=== PATIENT | female | born 1995 | race Caucasian/White ===

== ENCOUNTER → 2023-04-05 | Outpatient (CLI) | payer OTHER ==
[~2023-04-05] MED LIST: FERROUSAL325 MG PO; MOTRIN 600600 MG/TAB PO; NATURAL IRON65 MG; PRENATAL TABLET PO
--- NOTE | 2023-04-05 14:43 | NUR ---
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 Pt c/o sore nipples and not sure baby is getting enough to eat as Stephanie wants to eat again in 30 minutes after many feedings. Stephanie is pt's second baby, she was not able to latch her first baby. During the telephone conversation yesterday, pt was advised to pump after breastfeedings and supplement EBM since pt was not sure her milk was in yet. Stephanie was born on [birth year] and weighed 6# 5.9oz (22245 gms). Pt states Stephanie was seen by Dr. Busby yesterday and could not recall her weight but was 6% below weight. Today Stephanie weighs 6# 2.2oz (2784 gms) for a 3% loss. Pt reports Stephanie has had qs voids and stools, that the stools are yellow, and she thinks her breasts are feeling different. Since yesterday Stephanie has continued and received ~4oz EBM. At this appt it is noted pt has bilateral wounds to the nipples consistent with compression from a shallow latch. coaches pt on compression of the areola, which pt does well, but Stephanie has a small mouth that she does not keep open very long. With some assistance Stephanie gets a more comfortable latch and nurses bilaterally. A nipple shield was tried for a brief time to see if it made the latch more comfortable but Stephanie did not engage with the shield. After Stephanie had a weight gain of 48 gms (1.6oz). She does show some rooting. suggests to continue BF/supplement 0.5-1oz EBM p Bf/ and pupinng. Although Stephanie appears to be gaining weight well, pt has a good bit of worry so the above plan is with the idea that as pt develops a little better milk supply and Stephanie has a little more time to improve latch, pt will feel comfortable Stephanie is getting enough to eat. Discontinue when pt feeling Stephanie is more content p BF and is disinterested in the supplement. POC: 3-step with breast/supplement 0..5-1oz EBM/pump. F/U: Advised on [facility] Monday or Monday, and walk-in clinic on Monday. Questions invited and answered.
== END ==
LOC: LAC 08:58
DX: Z39.1 Encounter for care and examination of lactating mother (principal)